=== PATIENT | female | born 1960 | race Two or more races ===

== ENCOUNTER 2022-06-18 07:41 | Day surgery (SDC) | payer MEDICARE, MEDICAID ==
[2022-06-18] VITALS (7 sets, daily range): BP systolic 95–118; BP diastolic 50–64
[~2022-06-18] VITALS: Ht 170.2 cm; Wt 113.4 kg
[~2022-06-18 07:41] MED LIST: AMLO-489 PO; ASPI1TAB19 PO; ATO40T PO; BACL20TA PO; CHOL1CAP58 PO; HYDR25TA5 PO; IBUP800T27 PO; LEVO175T66 PO; METO25TA5 PO; MULT-1018 PO; OMEG100062 PO; PANT40T PO; PREG100C PO; TIMO0.5S66 EACHEYE; TRIA0.1P17 TOP
[2022-06-18] MEDS ORDERED: IODIXANOL 320MG/ML 100ML BTL IV ONE (08:26)
[2022-06-18] MEDS ORDERED: LIDOCAINE 2%HCL (LOCAL ANESTH.) INJ 20ML MDV ONE (08:26)
[2022-06-18] MEDS ORDERED: ANGIOMAX 250 MG VIAL IV ONE (08:39)
[2022-06-18] MEDS ORDERED: HEPARIN SODIUM (PORCINE) 5000 UNITS/ML 1ML VIAL ONE (08:39)
[2022-06-18] MEDS ORDERED: fentaNYL CITRATE 100 MCG/2 ML VL ONE (08:40)
[2022-06-18] MEDS ORDERED: MIDAZOLAM HCL 2MG/2ML 2ml VIAL (1mg/ml) ONE (08:40)
[2022-06-18] MEDS ORDERED: SODIUM CHL 0.9% 0 ML ONE (08:40)
[2022-06-18] MEDS ORDERED: VERAPAMIL 2.5MG/ML INJ 2ML VIAL IV ONE (08:40)
== END 2022-06-18 11:20 | disposition home or self-care (01) ==
LOC: CATH 07:41
PROVIDERS: ATTEND Internal Medicine Cardiovascular Disease
DX: R94.39 Abnormal result of other cardiovascular function study (principal); I10 Essential (primary) hypertension; E78.5 Hyperlipidemia, unspecified; E11.42 Type 2 diabetes mellitus with diabetic polyneuropathy; G47.33 Obstructive sleep apnea (adult) (pediatric); E03.9 Hypothyroidism, unspecified; E66.01 Morbid (severe) obesity due to excess calories; Z79.82 Long term (current) use of aspirin; Z20.822 Contact with and (suspected) exposure to COVID-19; Z68.39 Body mass index [BMI] 39.0-39.9, adult
CPT/HCPCS: 93458; C1769; C1887; C1894; J1644; J2250; J3010; Q9967; U0003; 99152